=== PATIENT | female | born 1950 | race Caucasian/White ===

== ENCOUNTER → 2017-04-30 | Outpatient (CLI) | payer BC ==
[~2017-04-30] MED LIST: AZIT250 PO; HYDCHL25 PO; LEVSOD100 PO; LEVSOD88 PO; METF500 PO; OMEP20ER; PROG100 PO; TRIHYD5075 PO
== END | disposition home or self-care (01) ==
LOC: PLD 08:33 → LAB SHORT 08:33
DX: D22.71 Melanocytic nevi of right lower limb, including hip (principal); D22.39 Melanocytic nevi of other parts of face; D22.61 Melanocytic nevi of right upper limb, including shoulder
CPT/HCPCS: 88305; 88342

== ENCOUNTER 2018-06-25 19:28 | Emergency (ER) | payer BC ==
[~2018-06-25] VITALS: Ht 162.6 cm; Wt 80.3 kg
[~2018-06-25 19:28] MED LIST changes: -LEVSOD100 PO; -OMEP20ER; +OMEPRAZOLE MAGN20 MG PO
[2018-06-25 20:38] LABS: BASOPHILS ABSOLUTE AUTO 0.04 K/mm3 (0.00-0.23); BASOPHILS PERCENT AUTO 1 % (0-2); EOSINOPHILS ABSOLUTE AUTO 0.02 K/mm3 (0.00-0.68); EOSINOPHILS PERCENT AUTO 0 % (0-6); Hematocrit 41.7 % (33.0-51.0); Hemoglobin 14.3 g/dL (11.5-16.0); IMMATURE GRAN ABSOLUTE AUTO 0.03 K/mm3 (0.00-0.10); IMMATURE GRAN PERCENT AUTO 0 % (0-1); LYMPHOCYTES ABSOLUTE AUTO 0.97 K/mm3 (0.84-5.20); LYMPHOCYTES PERCENT AUTO 12 % (21-46); MONOCYTES ABSOLUTE AUTO 0.72 K/mm3 (0.16-1.47); MONOCYTES PERCENT AUTO 9 % (4-13); Mean Corpuscular HGB Conc 34.3 g/dL (31.5-36.5); Mean Corpuscular Volume 90 fL (80-100); Mean Platelet Volume 9.8 fL (9.1-12.4); NEUTROPHILS ABSOLUTE AUTO 6.08 K/mm3 (1.96-9.15); NEUTROPHILS PERCENT AUTO 77 % (41-73); Platelet Count 339 K/mm3 (150-400); RDW Coefficient Variation 13.4 % (11.7-14.2); RDW Standard Deviation 44.2 fL (35.1-46.3); Red Blood Cell Count 4.62 M/mm3 (3.80-5.20); White Blood Cell Count 7.86 K/mm3 (4.00-11.30)
[2018-06-25 20:53] LABS: Alanine Aminotransfer (ALT/SGP 21 U/L (12-78); Albumin, Blood 4.1 g/dL (3.4-5.0); Albumin/Globulin Ratio 1.1 (0.8-1.8); Alk Phos 79 U/L (50-136); Anion Gap 12 mmol/L (6-16); Aspartate Aminotrans (AST/SGOT 15 U/L (12-37); Bilirubin, Total 0.5 mg/dL (0.1-1.0); Blood Urea Nitrogen 9 mg/dL (8-24); Bun/Creatinine Ratio 11.7 (12.0-20.0); CO2, Blood 30 mmol/L (21-32); Calcium, Blood 9.2 mg/dL (8.5-10.1); Chloride, Blood 90 mmol/L (98-108); Creatinine, Blood 0.77 mg/dL (0.40-1.00); Globulin, Blood 3.6 g/dL (2.2-4.0); Glomerular Filtration Rate >60 (60-); Glucose, Blood 169 mg/dL (70-99); Potassium, Blood 2.7 mmol/L (3.5-5.5); Sodium, Blood 132 mmol/L (136-145); Total Protein, Blood 7.7 g/dL (6.4-8.2)
[2018-06-27] MEDS ORDERED: NIAC500ER PO (15:43)
[2018-06-27] MEDS ORDERED: Vitamin E400 UNI4 PO (15:43)
[2018-06-27] MEDS ORDERED: Flonase 0.05% N16 GM (15:44)
[2018-06-27] MEDS ORDERED: ALORA TD (15:51)
[2018-06-27] MEDS ORDERED: FISH OIL 1,001000 MG PO (15:55)
[2018-06-27] MEDS ORDERED: ACYC400 PO (18:34)
[2018-06-27] MEDS ORDERED: VITAMIN D5000 UNIT PO (18:35)
== END 2018-06-26 01:59 | disposition home or self-care (01) ==
LOC: ER 19:28
PROVIDERS: Physician Assistant
DX: E87.6 Hypokalemia (principal); E86.0 Dehydration; Z79.899 Other long term (current) drug therapy; Z79.84 Long term (current) use of oral hypoglycemic drugs; I10 Essential (primary) hypertension; K21.9 Gastro-esophageal reflux disease without esophagitis
CPT/HCPCS: 36415; 74018; 80053; 83690; 83735; 85025; 96365; 96366; 96375; 99284-25; J1885; J2405; J3475; J3480; J7030

== ENCOUNTER 2018-06-27 13:20 | Inpatient (IN) | payer MEDICARE, BC ==
[~2018-06-27] VITALS: Ht 162.6 cm; Wt 80.3 kg
[~2018-06-27 13:20] MED LIST changes: -ACYC400 PO; -ALORA TD; -Augmentin 875-1 EACH PO; -FISH OIL 1,001000 MG PO; -Flonase 0.05% N16 GM; -NIAC500ER PO; -OXYC5 PO; -VITAMIN D5000 UNIT PO; -Vitamin E400 UNI4 PO
[2018-06-27] MEDS ORDERED: NIAC500ER PO (15:43)
[2018-06-27] MEDS ORDERED: Vitamin E400 UNI4 PO (15:43)
[2018-06-27] MEDS ORDERED: Flonase 0.05% N16 GM (15:44)
[2018-06-27] MEDS ORDERED: ALORA TD (15:51)
[2018-06-27] MEDS ORDERED: FISH OIL 1,001000 MG PO (15:55)
--- NOTE | 2018-06-27 16:23 | NUR ---
06/27/18 1623 Jennifer He PT ON SCHEDULED ANTIBIOTIC
[2018-06-27] MEDS ORDERED: ACYC400 PO (18:34)
[2018-06-27] MEDS ORDERED: VITAMIN D5000 UNIT PO (18:35)
[2018-06-28 05:05] LABS: BASOPHILS ABSOLUTE AUTO 0.05 K/mm3 (0.00-0.23); BASOPHILS PERCENT AUTO 0 % (0-2); EOSINOPHILS ABSOLUTE AUTO 0.02 K/mm3 (0.00-0.68); EOSINOPHILS PERCENT AUTO 0 % (0-6); Hematocrit 36.5 % (33.0-51.0); Hemoglobin 11.9 g/dL (11.5-16.0); IMMATURE GRAN ABSOLUTE AUTO 0.49 K/mm3 (0.00-0.10); IMMATURE GRAN PERCENT AUTO 2 % (0-1); LYMPHOCYTES ABSOLUTE AUTO 0.52 K/mm3 (0.84-5.20); LYMPHOCYTES PERCENT AUTO 2 % (21-46); MONOCYTES ABSOLUTE AUTO 0.77 K/mm3 (0.16-1.47); MONOCYTES PERCENT AUTO 3 % (4-13); Mean Corpuscular HGB 30.7 pg (26.0-34.0); Mean Corpuscular HGB Conc 32.6 g/dL (31.5-36.5); Mean Platelet Volume 9.9 fL (9.1-12.4); NEUTROPHILS ABSOLUTE AUTO 20.72 K/mm3 (1.96-9.15); NEUTROPHILS PERCENT AUTO 92 % (41-73); Platelet Count 268 K/mm3 (150-400); RDW Standard Deviation 48.5 fL (35.1-46.3); Red Blood Cell Count 3.87 M/mm3 (3.80-5.20); White Blood Cell Count 22.57 K/mm3 (4.00-11.30)
[2018-06-28 05:06] LABS: Mean Corpuscular Volume 94 fL (80-100)
[2018-06-28 05:43] LABS: Alanine Aminotransfer (ALT/SGP 39 U/L (12-78); Albumin, Blood 2.4 g/dL (3.4-5.0); Albumin/Globulin Ratio 0.7 (0.8-1.8); Alk Phos 86 U/L (50-136); Anion Gap 8 mmol/L (6-16); Aspartate Aminotrans (AST/SGOT 36 U/L (12-37); Bilirubin, Total 1.1 mg/dL (0.1-1.0); Blood Urea Nitrogen 13 mg/dL (8-24); Bun/Creatinine Ratio 15.3 (12.0-20.0); CO2, Blood 25 mmol/L (21-32); Calcium, Blood 7.6 mg/dL (8.5-10.1); Chloride, Blood 101 mmol/L (98-108); Creatinine, Blood 0.85 mg/dL (0.40-1.00); Globulin, Blood 3.4 g/dL (2.2-4.0); Glomerular Filtration Rate >60 (60-); Glucose, Blood 139 mg/dL (70-99); Potassium, Blood 3.1 mmol/L (3.5-5.5); Sodium, Blood 134 mmol/L (136-145); Total Protein, Blood 5.8 g/dL (6.4-8.2)
--- NOTE | 2018-06-28 06:20 | NUR ---
SHIFT SUMMARY PT POD#1 LAP CARLEE. AAOX4. DRESSING TO ABD C/D/I. TODD WITH MODERATE AMOUNTS SEROUS FLUID OUT. PT SBA UP TO RESTROOM, GOOD PO INTAKE + OUTPUT. IVF PER ORDERS. ELEVATED LACTIC ACID THIS SHIFT, DR GEIGER NOTIFIED + NEW ORDERS OBTAINED. CONTINUE IVF + ABX. DISCOMFORT CONTROLLED WITH TORADOL. PT RESTED WELL THIS SHIFT. CALL LIGHT IN REACH + PT USES FOR ASSISTANCE.
--- NOTE | 2018-06-28 10:42 | NUR ---
ROUNDING: DR GEIGER IN TO SEE PATIENT. AM LABS ORDERED. CONT IVF AND ABX. ENCOURAGING AMBULATION. PT UP TO WALK HALLWAYS WITH MIN ASSIST.
--- NOTE | 2018-06-28 18:08 | NUR ---
PT HAS BEEN STABLE THIS SHIFT, AFEBRILE. CONT ABX AND FLUIDS. AM LABS TO BE REPEATED. POTASSIUM IV X2 BAGS THIS SHIFT. PT UP TO WALK HALLWAYS X3. VOIDING WELL. CONT FL DIET. PT HAS STARTED TO PASS FLATUS, NO BM. MILK OF MAG GIVEN THIS AM. ABD DISTENDED. TODD WITH 80CC OUTPUT. PAIN CONTROLLED WITH PRN NORCO. NO NAUSEA. PLAN TO DC HOME WHEN CLINICALLY IMPOROVED.
--- NOTE | 2018-06-29 05:03 | NUR ---
SHIFT SUMMARY PT POD#2. AAOX4. DISCOMFORT CONTROLLED WITH 2 PAIN PILLS Q4P. NO NAUSEA/EMESIS. IVF + ABX PER ORDERS. UP SBA IN ROOM TO AMBULATE. ENCOURAGE AMBULATION TODAY IN [place]. MINIMAL OUT OF TODD. PT RESTING WELL THIS AM. CALL LIGHT IN REACH + PT USES FOR ASSISTANCE.
[2018-06-29 05:05] LABS: BASOPHILS ABSOLUTE AUTO 0.03 K/mm3 (0.00-0.23); BASOPHILS PERCENT AUTO 0 % (0-2); EOSINOPHILS PERCENT AUTO 1 % (0-6); Hematocrit 34.3 % (33.0-51.0); Hemoglobin 11.2 g/dL (11.5-16.0); IMMATURE GRAN ABSOLUTE AUTO 0.14 K/mm3 (0.00-0.10); IMMATURE GRAN PERCENT AUTO 1 % (0-1); LYMPHOCYTES ABSOLUTE AUTO 1.16 K/mm3 (0.84-5.20); LYMPHOCYTES PERCENT AUTO 7 % (21-46); MONOCYTES ABSOLUTE AUTO 0.79 K/mm3 (0.16-1.47); MONOCYTES PERCENT AUTO 5 % (4-13); Mean Corpuscular HGB 30.5 pg (26.0-34.0); Mean Corpuscular HGB Conc 32.7 g/dL (31.5-36.5); Mean Corpuscular Volume 94 fL (80-100); Mean Platelet Volume 9.8 fL (9.1-12.4); NEUTROPHILS ABSOLUTE AUTO 13.28 K/mm3 (1.96-9.15); NEUTROPHILS PERCENT AUTO 85 % (41-73); Platelet Count 262 K/mm3 (150-400); RDW Coefficient Variation 14.1 % (11.7-14.2); RDW Standard Deviation 48.1 fL (35.1-46.3); Red Blood Cell Count 3.67 M/mm3 (3.80-5.20)
[2018-06-29 05:31] LABS: Alanine Aminotransfer (ALT/SGP 40 U/L (12-78); Albumin, Blood 2.2 g/dL (3.4-5.0); Albumin/Globulin Ratio 0.6 (0.8-1.8); Alk Phos 95 U/L (50-136); Anion Gap 6 mmol/L (6-16); Aspartate Aminotrans (AST/SGOT 36 U/L (12-37); Bilirubin, Total 0.7 mg/dL (0.1-1.0); Blood Urea Nitrogen 12 mg/dL (8-24); Bun/Creatinine Ratio 16.9 (12.0-20.0); CO2, Blood 26 mmol/L (21-32); Calcium, Blood 7.5 mg/dL (8.5-10.1); Chloride, Blood 101 mmol/L (98-108); Creatinine, Blood 0.71 mg/dL (0.40-1.00); Globulin, Blood 3.5 g/dL (2.2-4.0); Glomerular Filtration Rate >60 (60-); Glucose, Blood 100 mg/dL (70-99); Magnesium, Blood 2.1 mg/dL (1.6-2.4); Phosphorus, Blood 1.4 mg/dL (2.5-4.9); Potassium, Blood 3.2 mmol/L (3.5-5.5); Sodium, Blood 133 mmol/L (136-145); Total Protein, Blood 5.7 g/dL (6.4-8.2)
[2018-06-29] MEDS ORDERED: Augmentin 875-1 EACH PO (10:59)
[2018-06-29] MEDS ORDERED: OXYC5 PO (11:00)
--- NOTE | 2018-06-29 15:48 | NUR ---
DISCHARGED DC'D IV, CATHETER INTACT. REVIEWED DC PAPERWORK; PT VERBALIZED UNDERSTANDING. PT LEFT UNIT IN WC W/DC PAPERWORK, PRESCRIPTIONS AND PERSONAL POSSESSIONS IN HAND ACCOMPANIED BY SPOUSE.
== END 2018-06-29 15:37 | disposition home or self-care (01) | DRG 419 ==
LOC: ER 13:20 → ERHOLD 15:10 → SURS 15:10
PROVIDERS: ADMIT Surgery
PROC: 0FT44ZZ Resection of Gallbladder, Percutaneous Endoscopic Approach (ICD-10-PCS; principal; 2018-06-27 15:30)
DX: K81.0 Acute cholecystitis (principal); K21.9 Gastro-esophageal reflux disease without esophagitis; E03.9 Hypothyroidism, unspecified; K82.A1 Gangrene of gallbladder in cholecystitis
CPT/HCPCS: 36415; 74176; 80053; 83605; 83735; 84100; 85025; 88304; 96365; 96375; 99285-25; A9270-GY; C1729; J0295; J1100; J1650; J1885; J2250; J2270; J2405; J2543; J2704; J2710; J3010; J3480; J7030; J7060; J7120

== ENCOUNTER → 2018-06-27 | Outpatient (CLI) | payer BC ==
[~2018-06-27] MED LIST changes: +ACYC400 PO; +ALORA TD; +Augmentin 875-1 EACH PO; +FISH OIL 1,001000 MG PO; +Flonase 0.05% N16 GM; +NIAC500ER PO; +OXYC5 PO; +VITAMIN D5000 UNIT PO; +Vitamin E400 UNI4 PO
[2018-06-27 12:16] LABS: Source, Urine Clean Catch
[2018-06-27 12:23] LABS: Bacteria Many /hpf; Red Blood Cells, Urine 0-2 /hpf (0-2); Squamous Epithelial Cells Many /hpf (Few)
[2018-06-27 12:24] LABS: Amorphous Heavy (0-Heavy)
[2018-06-27 12:35] LABS: BASOPHILS ABSOLUTE AUTO 0.11 K/mm3 (0.00-0.23); BASOPHILS PERCENT AUTO 0 % (0-2); Hematocrit 46.3 % (33.0-51.0); Hemoglobin 16.2 g/dL (11.5-16.0); LYMPHOCYTES ABSOLUTE AUTO 0.81 K/mm3 (0.84-5.20); LYMPHOCYTES PERCENT AUTO 2 % (21-46); MONOCYTES ABSOLUTE AUTO 1.29 K/mm3 (0.16-1.47); MONOCYTES PERCENT AUTO 4 % (4-13); Mean Corpuscular HGB 31.4 pg (26.0-34.0); Mean Corpuscular Volume 90 fL (80-100); Mean Platelet Volume 9.9 fL (9.1-12.4); Platelet Count 359 K/mm3 (150-400); Red Blood Cell Count 5.16 M/mm3 (3.80-5.20); White Blood Cell Count 34.02 K/mm3 (4.00-11.30)
[2018-06-27 12:48] LABS: Albumin, Blood 3.9 g/dL (3.4-5.0); Albumin/Globulin Ratio 0.8 (0.8-1.8); Bun/Creatinine Ratio 12.5 (12.0-20.0); Calcium, Blood 9.6 mg/dL (8.5-10.1); Creatinine, Blood 1.12 mg/dL (0.40-1.00); Globulin, Blood 4.7 g/dL (2.2-4.0); Potassium, Blood 2.8 mmol/L (3.5-5.5); Total Protein, Blood 8.6 g/dL (6.4-8.2)
[2018-06-27 13:29] LABS: BAND PERCENT MAN 16 % (0-8); BASOPHILS PERCENT MAN 0 % (0-2); EOSINOPHILS PERCENT MAN 0 % (0-6); LYMPHOCYTES PERCENT MAN 3 % (21-46); MONOCYTES PERCENT MAN 4 % (4-13); SEG NEUTROPHILS PERCENT MAN 77 % (41-73); TOTAL CELLS COUNTED 100
[2018-06-27 13:33] LABS: EOSINOPHILS ABSOLUTE AUTO 0.02 K/mm3 (0.00-0.68); EOSINOPHILS PERCENT AUTO 0 % (0-6); IMMATURE GRAN ABSOLUTE AUTO 1.05 K/mm3 (0.00-0.10); IMMATURE GRAN PERCENT AUTO 3 % (0-1); NEUTROPHILS ABSOLUTE AUTO 30.74 K/mm3 (1.96-9.15); NEUTROPHILS PERCENT AUTO 90 % (41-73)
== END | disposition home or self-care (01) ==
LOC: LAB SHORT 12:13 → LAB EV 12:13
PROVIDERS: General Practice
DX: R82.90 Unspecified abnormal findings in urine (principal); R10.9 Unspecified abdominal pain
CPT/HCPCS: 80053; 81015; 83690; 85025; 87086

== ENCOUNTER → 2018-11-03 | Outpatient (CLI) | payer BC ==
[~2018-11-03] MED LIST changes: +ACYC400 PO; +ALORA TD; +Augmentin 875-1 EACH PO; +FISH OIL 1,001000 MG PO; +Flonase 0.05% N16 GM; +NIAC500ER PO; +OXYC5 PO; +VITAMIN D5000 UNIT PO; +Vitamin E400 UNI4 PO
[2018-11-05 15:07] LABS: HPV 16 Negative (Negative); HPV 18 Negative (Negative); HPV OTHER HR TYPES Negative (Negative)
== END | disposition home or self-care (01) ==
LOC: LAB 10:37 → LAB SHORT 10:37
PROVIDERS: Obstetrics & Gynecology Gynecology
DX: Z12.4 Encounter for screening for malignant neoplasm of cervix (principal)
CPT/HCPCS: 87624; G0123

== ENCOUNTER → 2019-03-04 | Outpatient (CLI) | payer BC | END | disposition home or self-care (01) | LOC: LAB SHORT 12:28 → PLD 12:28 | DX: N95.0 Postmenopausal bleeding (principal) | CPT/HCPCS: 88305 ==

== ENCOUNTER → 2019-11-26 | Outpatient (CLI) | payer BC | LOC: LAB SHORT 12:00 → LAB 12:00 | PROVIDERS: Physician Assistant | DX: R19.7 Diarrhea, unspecified (principal) | CPT/HCPCS: 87324; 87493 ==

== ENCOUNTER → 2019-11-27 | Outpatient (CLI) | payer BC | LOC: PLD 11:57 → LAB SHORT 11:57 → LAB FUT 11-24 12:20 | DX: R19.7 Diarrhea, unspecified (principal) | CPT/HCPCS: 87015; 87045; 87046; 87177; 87205; 87209; 87899 ==

== ENCOUNTER → 2019-12-01 | Outpatient (CLI) | payer BC | LOC: LAB 14:01 → LAB SHORT 14:01 | DX: D48.5 Neoplasm of uncertain behavior of skin (principal) | CPT/HCPCS: 88305 ==

== ENCOUNTER → 2021-05-07 | Outpatient (CLI) | payer BC | LOC: LAB 11:14 → LAB SHORT 11:14 | DX: K21.9 Gastro-esophageal reflux disease without esophagitis (principal) | CPT/HCPCS: 87338 ==

== ENCOUNTER → 2021-08-15 | Outpatient (CLI) | payer BC | END | disposition home or self-care (01) | LOC: LAB 10:11 → LAB SHORT 10:11 → PLD 10:11 | DX: N95.0 Postmenopausal bleeding (principal) | CPT/HCPCS: 88305 ==